=== PATIENT | female | born 1965 | race Caucasian/White ===

== ENCOUNTER → 2019-01-11 15:16 | Outpatient (CLI) | payer OTHER, SELFPAY | PROVIDERS: Family Provider Family Medicine; PCP Family Medicine; Referring Provider Otolaryngology Otolaryngology/Facial Plastic Surgery; Visit Provider Otolaryngology Otolaryngology/Facial Plastic Surgery | DX: J02.9 Acute pharyngitis, unspecified (principal); J32.9 Chronic sinusitis, unspecified | CPT/HCPCS: 87070 ==

== ENCOUNTER → 2020-11-16 16:01 | Outpatient (CLI) | payer OTHER, SELFPAY ==
--- NOTE | 2020-11-16 16:11 | MRI_ITS ---
STUDY: MRI LEFT ANKLE WITHOUT CONTRAST REASON FOR EXAM: Female, 55 years old. ACHILLES TENDINITIS, HEEL SPUR TECHNIQUE: Standardized fat and water weighted pulse sequences were obtained in all 3 orthogonal planes. COMPARISON: None. FINDINGS: Normal subcutis adipose space. Normal posterior tibialis tendon. Normal flexor digitorum longus tendon. There is tenosynovitis of the flexor hallucis longus tendon sheath, with an intrinsically normal tendon. Normal peroneus longus and brevis tendons. Normal tibialis anterior tendon. Normal extensor hallucis longus tendon. Normal extensor digitorum longus tendons. Thickening of the distal Achilles tendon consistent with insertional Achilles tendinitis. Associated edema of the Kager''s fat pad consistent with peritendinosis. Associated irregularity of the posterior calcaneus with stress reaction. No retrocalcaneal bursitis or posterior peritenonitis. No intratendinous hyperintensity to suggest mucous degeneration or partial tear. Normal plantar fascia. Normal plantar calcaneal tubercles. Normal intrinsic muscles of the rearfoot. Normal distal tibiofibular syndesmotic ligamentous complex. Normal lateral ligamentous complex. Normal subtalar ligaments and sinus tarsi. Normal deltoid ligamentous complexes. Normal plantar calcaneonavicular (spring) ligament. There is a joint effusion of the tibiotalar articulation with capsular distension. Normal talar dome. Normal subtalar articulations. Normal talonavicular articulation. Normal calcaneocuboid articulation. Normal navicular-cuneiform articulations. MRI/Lower Ext Joint Only (Routine) IMPRESSION: Insertional Achilles tendinitis with peritendinosis and stress reaction of the posterior calcaneus. Electronically Signed: Jose Magaña MD at 7:08 EDT Tel , Service support ,
== END ==
PROVIDERS: PCP Family Medicine; Visit Provider Podiatrist
DX: M76.62 Achilles tendinitis, left leg (principal); M77.32 Calcaneal spur, left foot
CPT/HCPCS: 73721

== ENCOUNTER 2021-06-03 10:30 | Outpatient (RCR) | payer OTHER, SELFPAY ==
--- NOTE | 2021-05-01 10:00 | HP.PTEVAL ---
Patient's Visit Information BERTO SANTO is a 56 year old F referred to Physical Therapy by Dr. Kuldip Lin DPM with a diagnosis of L Achilles tendonitis and tightness. Date of Evaluation: 04/30/21 Physical Therapist: Viktor Conner DPT - Visit Plan Frequency: 2x /Week Duration: 4 Weeks Plan: Start with frequent prolonged stretching, eccentric G/S strengthening. - Subjective Pt. is here today for her initial evaluation with diagnosis of L Achilles tendonitis and tightness. Pt. reports having surgery ~1 year ago on her Achilles tendon and was doing better, but over the past few months she has been having increased issues. Pt. did have EPAT procedure over several visits. She reports EPAT being helpful. She has not been doing much exercises, but is walking better. Pt. reports having increased issues in the morning, stairs and with increased walking. She describes weakness with attempts to push off and complete SL heel raises. She is hopeful to get back to all recreational activities including hiking and prolonged walking. - Pain L Achilles Pain Intensity (Out of 10): 2 Pain Intensity Range: 0, 5 - Objective POSTURE: Pt. has decent posture, proper wt. shifting. No knee valgus, normal ankle positioning as well. PALPATION: Pt. has increased scarring (hypertrophic) at distal Achilles tendon, mild increase NW at this region. Pt. has tenderness in musculotendon junction as well. NEURO: normal throughout. ROM:AROM: L ankle: DF 2deg, PF 36deg, INV 10deg, EVR 6deg. PROM: L ankle: DF 6deg, PF 40deg, INV 20deg, EVR 18deg. Pt. has normal knee ROM bilaterally. MMT: Pt. has good testing against MMT, equal throughout. Pt. was however unable to do a SL heel raise on L side, weakness and mild increase in symptoms. GAIT: Pt. has decent gait pattern, slight early heel off on L side during end phase of stance/pre swing. STAIRS: Pt. is able to complete with reciprocal steps without HR, but does feel weak with push off. She also has early heel off with loading LLE during descending, increased pain as well. - Balance/Special Test Scores Lower Extremity Functional Score: 58 - Goals Goal 1:: LTG: Pt. to be I with HEP for calf stretching and strengthening. Goal Time Frame: 4-6 Weeks Goal 2:: STG: Pt. to have increase L ankle DF to at least 10deg of DF allowing for increased ambulation tolerance Goal Time Frame: 2-4 Weeks Goal 3:: LTG: Pt. to negotiate 1 flight of stairs with reciprocal pattern with out early heel off on L side. Goal Time Frame: 4-6 Weeks Goal 4:: LTG: Pt. to complete SL heel raises x10 on LLE without increase in symptoms allowing for increased functional strength. Goal Time Frame: 4-6 Weeks Goal 5:: LTG: Pt. to be able to complete all hiking and recreational activities without increase in symptoms. Goal Time Frame: 4-6 Weeks - Rehabilitation Potential Physical Therapy Diagnosis: Pt. has signs and symptoms consisten with L Achilles tendonitis and tightness. Pt. has marked tightness into DF, but also marked weakness with increased pain during functional loading of Achilles tendon. She would benefit from prolonged stretching of G/S complex and progression of eccentric exercises to increase tendon remodeling. Rehabilitation Potential: Excellent - Anticipated Interventions Patient/Client Instruction: Educate patient on: Condition, Plan of Care, Risk Factors, Benefits of Fitness Program For the Purpose of:: To improve decision making, To facilitate caregiver knowledge, To improve self management, To prevent re-injury, To improve ability to perform tasks related to life management, To improve tolerance to ADL's Therapeutic Exercise to Include: Strength training, Power training, Body mechanics, Postural training, Flexibilty training, Gait and locomotor training, Passive ROM, Active ROM For the Purpose of:: To decrease pain, To decrease swelling/inflammation, To increase ROM, To improve nutrient delivery to tissue, To increase oxygenation perfusion, To improve muscle performance and motor function, To decrease soft tissue restriction, To increase flexibility/ROM Manual Therapy Techniques to Include: Mobilization, Soft tissue mobilization For the Purpose of:: To decrease pain, To decrease swelling/inflammation, To increase ROM Thank you for the opportunity to evaluate your patient. For Medicare and Medicare HMO plans, please review the plan of care and approve it. It will need to be FAXED BACK to us at [phone] for Medicare purposes. For Medicare only, by signing this I certify the plan of care. Please let me know if there are questions or concerns regarding this plan of care. Physician Signature: Date:
--- NOTE | 2021-07-10 10:01 | HP.PTREVAL ---
Dr. Kuldip Lin, DPM, It has been my pleasure to treat BERTO SANTO over the last 6 visits for L Achilles tendonitis and tightness. Please see the progress note below for an update on the physical therapy plan of care! Subjective: Pt. reports being 90% better overall. She reports no pain really with most activities any more. She does report some stiffness, but feels better. Objective/Function: Pt. has improved ROM of her ankle without issues. Pt. is walking without issues. HEP compliant with general strengthening and eccentrics of calf musculature. She reports overall doing well. She is to follow up with physician next week, but continue with her HEP. Plan Plan: Pt. is doing well. She is to follow up with physician next week. Then back to Pt if needed. Balance/Gait/Functional tests - Balance/Special Test Scores Lower Extremity Functional Score: 80 Goals Goal 1:: LTG: Pt. to be I with HEP for calf stretching and strengthening. Goal Time Frame: 4-6 Weeks Goal Progress: Goal Met Goal 2:: STG: Pt. to have increase L ankle DF to at least 10deg of DF allowing for increased ambulation tolerance Goal Time Frame: 2-4 Weeks Goal Progress: Goal Met Goal 3:: LTG: Pt. to negotiate 1 flight of stairs with reciprocal pattern with out early heel off on L side. Goal Time Frame: 4-6 Weeks Goal Progress: Goal Met Goal 4:: LTG: Pt. to complete SL heel raises x10 on LLE without increase in symptoms allowing for increased functional strength. Goal Time Frame: 4-6 Weeks Goal Progress: Goal Met Goal 5:: LTG: Pt. to be able to complete all hiking and recreational activities without increase in symptoms. Goal Time Frame: 4-6 Weeks Goal Progress: Goal Met Anticipated Interventions Patient/Client Instruction: Educate patient on: Condition, Plan of Care, Risk Factors, Benefits of Fitness Program For the Purpose of:: To improve decision making, To facilitate caregiver knowledge, To improve self management, To prevent re-injury, To improve ability to perform tasks related to life management, To improve tolerance to ADL's Therapeutic Exercise to Include: Strength training, Power training, Body mechanics, Postural training, Flexibilty training, Gait and locomotor training, Passive ROM, Active ROM For the Purpose of:: To decrease pain, To decrease swelling/inflammation, To increase ROM, To improve nutrient delivery to tissue, To increase oxygenation perfusion, To improve muscle performance and motor function, To decrease soft tissue restriction, To increase flexibility/ROM Manual Therapy Techniques to Include: Mobilization, Soft tissue mobilization For the Purpose of:: To decrease pain, To decrease swelling/inflammation, To increase ROM Please do not hesitate to contact me at [phone] by phone or if you have questions or concerns regarding this new plan of care! Sincerely, BONNIE DowT
--- NOTE | 2021-07-10 10:02 | HP.PT.NRP ---
BERTO SANTO was seen in my office for initial evaluation on 04/30/21. The following Plan of Care was established for this patient: Initial Frequency: 2x /Week Initial Duration: 4 Weeks Patient/Client Instruction: Educate patient on: Condition, Plan of Care, Risk Factors, Benefits of Fitness Program For the Purpose of:: To improve decision making, To facilitate caregiver knowledge, To improve self management, To prevent re-injury, To improve ability to perform tasks related to life management, To improve tolerance to ADL's Therapeutic Exercise to Include: Strength training, Power training, Body mechanics, Postural training, Flexibilty training, Gait and locomotor training, Passive ROM, Active ROM For the Purpose of:: To decrease pain, To decrease swelling/inflammation, To increase ROM, To improve nutrient delivery to tissue, To increase oxygenation perfusion, To improve muscle performance and motor function, To decrease soft tissue restriction, To increase flexibility/ROM Manual Therapy Techniques to Include: Mobilization, Soft tissue mobilization For the Purpose of:: To decrease pain, To decrease swelling/inflammation, To increase ROM This patient was last seen in our office 06/03/21. Pertinent comments regarding their Physical therapy will appear below: Pt. called into report that she is doing well and no longer requires PT at this point in time. Pt. to be DC back to physician. At this point I will be discontinuing this patient from physical therapy. I would be happy to see this patient again in the future if found appropriate by the physician. Thank you! Viktor Conner, DPT Balance/Gait/Functional tests - Balance/Special Test Scores Lower Extremity Functional Score: 80
== END 2021-06-03 19:00 | disposition home or self-care (01) ==
LOC: PT 10:30
PROVIDERS: PCP Family Medicine; Referring Provider Podiatrist; Visit Provider Podiatrist
DX: M76.62 Achilles tendinitis, left leg (principal)
CPT/HCPCS: 97110; 97161

== ENCOUNTER → 2024-11-24 | Outpatient (CLI) | payer OTHER, SELFPAY ==
--- NOTE | 2024-11-24 12:37 | RAD_ITS ---
PROCEDURE: FOOT MIN 3 VIEWS 11/24/2024 REASON FOR EXAM: FOOT INJURY Medial foot pain following injury. TECHNIQUE: Procedure Code: RADFO Modality: DX Procedure: FOOT MIN 3 VIEWS Laterality: Right foot COMPARISON: None FINDINGS: Bones: No visible fracture. No suspicious bone lesion. Joints: Mild degree of joint space narrowing of the 1st metatarsophalangeal joint. Soft tissues: Mild overlying soft tissue swelling. Other: RAD/Foot min 3 Views IMPRESSION: Degenerative changes of the 1st metatarsophalangeal joint. No fracture seen. Soft tissue swelling. Reading Location: [place] [id number]
== END | disposition home or self-care (01) ==
LOC: MTRAD 12:36
PROVIDERS: PCP Family Medicine; Referring Provider Physician Assistant Surgical; Visit Provider Physician Assistant Surgical
DX: S99.921A Unspecified injury of right foot, initial encounter (principal)
CPT/HCPCS: 73630

== ENCOUNTER 2025-02-06 10:00 | Outpatient (RCR) | payer OTHER, SELFPAY ==
--- NOTE | 2024-11-14 18:25 | HP.PTEVAL_ITS ---
Patient's Visit Information Visit Information Visit Information: BERTO SANTO is a 59 year old F referred to Physical Therapy by EDGARDO MARCOS with a diagnosis of MIXED INCONTINENCE. Date of Evaluation: 11/14/24 Physical Therapist: Jane Dahl PT, Cert MDT Visit Plan Frequency: 1x/Week Duration: 2-4 Months Plan: PF THERAPY FOR STRENGTHENING, LENGTHENING/RELAXATION AND ENDURANCE BALJIT GILLIAN. HEALTHY BLADDER, BACK AND POSTURE HABIT EDUCATION. TRAINING IN COORDINATION OF PELVIC FLOOR MUSCULATURE WITH HIP AND CORE (TRANSVERSE ABDOMINUS) MUSCULATURE. CORE STRENGTHENING. OLGA LE ROM, STRETCHING AND STRENGTHENING. TRAINING IN ABDOMINAL CAVITY PRESSURE MGMT WITH ADL'S. 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 Present symptoms: MY BLADDER HAS DROPPED AND I HAVE HAD SOME NIGHT TIME ACCIDENTS. PATIENT REPORTS SHE IS TRYING TO STOP DRINKING AFTER 6 PM AND IS FORCING HERSELF TO GET UP TO GO TO THE BATHROOM AT NIGHT BETWEEN 11PM AND 2PM TO AVOID ACCIDENTS. SHE REPORTS SHE HAS HAD ABOUT 3 EPISODES OF LOSING CONTROL OF HER BLADDER DURING THE NIGHT IN THE LAST YEAR. SHE ALSO REPORTS URINARY LEAKING DURING LAUGHING, COUGHING AND SNEEZING. SHE DENIES URINATING FREQUENTLY. SHE ALSO REPORTS FEELING LIKE SHE HAS LOST A LOT OF STRENGTH SINCE HAVING HER HYSTERECTOMY IN 2019. Present since: UI STARTED AFTER HYSTERECTOMY. Pain Scale: PATIENT REPORTS SHE IS NOT HERE FOR PAIN. Is it getting better, worse or staying the same: STAYING THE SAME Worse: LAUGHING, COUGHING, SNEEZING, RARELY AT NIGHT (LAST EPISODE WAS SPRING 2024) Better: STOPPING FLUIDS BY 6 PM, NOT HOLDING IT WHEN URGE OCCURS, GETTING UP AT NIGHT TO USE BATHROOM. Previous history/Previous treatment: HYSTERECTOMY 2019 Treatment this episode: NO MEDICATIONS. Gait: NORMAL How long can you delay the need to urinate: ONE OR MORE HOURS Prolapse (Falling out feeling): NO. Frequency of Urination: 5-8 TIMES A DAY Ability to stop urine flow: CAN MAINTAIN A DEFLECTION OF THE STREAM Ability to initiate urine stream: NEVER DIFFICULT Dyspareunia: BIOIDENTICAL HORMONE CREAM - INCREASED FREQUENCY OF USE AT LAST BRYON'T DUE TO BLEEDING DURING INTERCOURSE SINCE HYSTERECTOMY. Bowel Incontinence: NO Unexplained weight loss: NO Imaging: NO PMH/Recent major surgery: HYPOTHYROIDISM, HIGH CHOLESTREROL, ANXIETY/DEPRESSION, LUMPECTOMY L BREAST FOR ABNORMAL CELLS - NO CHEMO OR RADIATION. Objective Objective: THIS PATIENT AMBUALTES INDEP'LY INTO PT WITH NO GROSS DEVIATIONS NOTED. INDEP TRANSFERS. Other Observations: C/O LBP IN LYING. OLGA HIP TIGHTNESS. SLOUCHING, BENDING AND TWISTING. Motor deficit: PELVIC FLOOR WEAKNESS. PELVIC FLOOR INTERNAL MANUAL VAGINALLY TESTED WITHOUT C/O PAIN AND GRADED 3/5 X 4 X 5 SEC. Core strength: FAIR Palpation: MODERATE CUEING REQUIRED FOR PELVIC FLOOR RELAXATION AFTER CONTRACTION AND PATIENT ABILITY IMPROVES WITH REPETITION. Pelvic Organ Prolapse Distress Inventory Score: 4 Urogenital Distress Inventory Score: 4 Goals Goal 1:: PATIENT WILL GET UP TO URINATE 0 TO 1 TIMES PER NIGHT DUE TO URGE WITHOUT EPISODES OF UI WITHOUT FORCING HERSELF TO WAKE UP. Goal Time Frame: 8-12 Weeks Goal 2:: PATIENT WILL DEVELOP HEALTHY FLUID INTAKE HABITS WITH FLUID INTAKE OF ? BODY WEIGHT IN OUNCES PER DAY AND 2/3 BEING WATER. Goal Time Frame: 2-4 Weeks Goal 3:: PATIENT WILL BE ABLE TO AVOID UI WITH LAUGHING, COUGHING AND SNEEZING. Goal Time Frame: 8-12 Weeks Goal 4:: INCREASE PELVIC FLOOR STRENGTH FOR BETTER ORGAN SUPPORT AND IMROVE URINARY INCONTINENCE Goal Time Frame: 8-12 Weeks Goal 5:: INCREASE ABDOMINAL/TRUNK AND LE STRENGTH FOR OPTIMAL ORGAN SUPPORT Goal Time Frame: 8-12 Weeks Goal 6:: INSTRUCT IN HEALTHY POSTURE, BACK AND BLADDER HABITS INCLUDING PROPER MGMT OF INTRA-ABDOMINAL PRESSURE DURING ADL'S. Goal Time Frame: 8-12 Weeks Rehabilitation Potential Physical Therapy Diagnosis: DECREASED PELVIC STRENGTH AND ENDURANCE ALONG WITH DIFFICULTY RELAXING PELVIC FLOOR AFTER ROSY IT. CORE WEAKNESS. DECREASED KNOWLEDGE OF HEALTHY POSTURE, BACK AND BLADDER HABITS. Rehabilitation Potential: Good Anticipated Interventions Patient/Client Instruction: Educate patient on: Condition, Plan of Care and Risk Factors For the Purpose of:: To improve self management Therapeutic Exercise to Include: Strength training, Endurance training, Body mechanics, Postural training, Flexibilty training, Neuromotor development and Relaxation training For the Purpose of:: To improve muscle performance and motor function, To increase tolerance to activity/condition/position, To increase flexibility/ROM and To improve ability to perform tasks related to life management Text: Thank you for the opportunity to evaluate your patient. For Medicare and Medicare HMO plans, please review the plan of care and approve it. It will need to be FAXED BACK to us at [phone] for Medicare purposes. For Medicare only, by signing this I certify the plan of care. Please let me know if there are questions or concerns regarding this plan of care. Physician Signature: Date:
--- NOTE | 2025-02-06 10:52 | HP.PTDCSUM ---
Discharge Summary D/C summary: It has been my pleasure to treat BERTO SANTO referred by MARCELLA RILEY NP-C, with the diagnosis of MIXED INCONTINENCE for a total of 11 visit(s). Discharge Date: 02/06/25 Please see the following information for a summary of their discharge status. Subjective Subjective: PATIENT REPORTS SHE IS DOING REALLY GOOD. HAS BEEN ABLE TO INCREASE THE HOLD TIME ON HER PELVIC FLOOR CONTRACTIONS TO 10 SEC EA AND SNEEZE WITHOUT LEAKING. ALSO HASN'T HAD ANY EPISODES OF UI AT NIGHT. STATES SHE HAS BEEN DOING ALL OF HER HOME EX'S AND INTENDS TO CONTINUE THEM. REPORTS SHE WAS JUST DX'D WITH OSTEOPOROSIS AND STARTED MEDICINE FOR IT. PLANS TO RETIRE AT THE END OF THIS SCHOOL YEAR AND FOCUS ON HER HEALTH. Overall Improvement % Improvement: 100 Objective Objective/Function: PATIENT WAS SEEN TODAY FOR RE-ASSESSMENT OF PROGRESS TOWARD THE SET PT GOALS AND THE NEED FOR FURTHER PHYSICAL THERAPY VS READINESS FOR DISCHARGE. ALL GOALS HAVE BEEN MET AND PATIENT IS APPROPRIATE FOR AND AGREEABLE TO DISCHARGE. Pelvic Organ Prolapse Distress Inventory Score: 0 Urogenital Distress Inventory Score: 0 Goals Goal 1:: PATIENT WILL GET UP TO URINATE 0 TO 1 TIMES PER NIGHT DUE TO URGE WITHOUT EPISODES OF UI WITHOUT FORCING HERSELF TO WAKE UP. Goal Progress: Goal Met Goal 2:: PATIENT WILL DEVELOP HEALTHY FLUID INTAKE HABITS WITH FLUID INTAKE OF ? BODY WEIGHT IN OUNCES PER DAY AND 2/3 BEING WATER. Goal Progress: Goal Met Goal 3:: PATIENT WILL BE ABLE TO AVOID UI WITH LAUGHING, COUGHING AND SNEEZING. Goal Progress: Goal Met Goal 4:: INCREASE PELVIC FLOOR STRENGTH FOR BETTER ORGAN SUPPORT AND IMROVE URINARY INCONTINENCE Goal Progress: Goal Met Goal 5:: INCREASE ABDOMINAL/TRUNK AND LE STRENGTH FOR OPTIMAL ORGAN SUPPORT Goal Progress: Goal Met Goal 6:: INSTRUCT IN HEALTHY POSTURE, BACK AND BLADDER HABITS INCLUDING PROPER MGMT OF INTRA-ABDOMINAL PRESSURE DURING ADL'S. Goal Progress: Goal Met Plan Plan: D/C D/C Information d/c sentence: If there are questions or concerns regarding this patient's physical therapy, please feel free to call me at [phone]. Thank you for the referral of this patient. Sincerely, Jane Dahl, PT, Cert MDT Balance/Gait/Functional tests Improvement % Improvement: 100
== END 2025-02-06 10:55 | disposition home or self-care (01) ==
LOC: PT 10:00
PROVIDERS: PCP Family Medicine; Referring Provider Nurse Practitioner Women's Health; Visit Provider Nurse Practitioner Women's Health
DX: N39.46 Mixed incontinence (principal)
CPT/HCPCS: 97162; 97530